=== PATIENT | male | born 1940 | race Caucasian/White ===

== ENCOUNTER 2016-10-01 19:47 | Inpatient (IN) ==
[2016-10-01] MEDS ORDERED: *HR* OxyCODONE/APAP 5/325 TABLET PO ONE (20:10)
--- NOTE | 2016-10-01 21:01 | Emergency Department Note ---
Disposition Clinical Impression: Popliteal artery aneurysm, Popliteal artery embolus Deep vein thrombosis of lower extremity Qualifiers: Affected thrombotic vein of extremity: unspecified vein of extremity Chronicity : acute Laterality: right Qualified Code(s): I82.401 - Acute embolism and thrombosis of unspecified deep veins of right lower extremity Clinical Impression: (Ruled Out): Popliteal artery embolism, right Disposition: Admitted As Inpatient Condition: Fair Referrals: Edith Dunaway DO [Primary Care Provider] - Forms: ED Satisfaction Letter Extremity Problem HPI - General Chief complaint: ED Extremity Problem,Nontraumatic Stated complaint: rt knee pain hospice patient Time Seen by Provider: 10/01/16 19:52 Source: patient, family Mode of arrival: private vehicle Limitations: physical limitation Nursing Notes Reviewed: Yes Vital Signs Reviewed: Yes - History of Present Illness HPI Narrative: 75-year-old male currently on hospice care for CHF who presents to the ER with a chief complaint of right lower extremity pain around his knee. Reports it started around 2-3 days ago. States that during that time he has been unable to ambulate on his right leg. He denies any history of trauma. No history of DVT or PE. Reports the pain worsened so he came in today. Denies a prior injury to his extremity. Denies chest pain. Reports shortness of breath which is chronic. No nausea vomiting diarrhea. Does take Plavix for prior history of cardiac stents. No other complaints. Pt Subjective Complaint: extremity pain, extremity swelling Onset (ago): day(s) Consistency: constant Injury Location: right, lower extremity Pain Scale: 8 Quality: aching Radiation: none Improves with: nothing Worsens with: range of motion, weight bearing Associated symptoms: Reports: shortness of breath, change in appearance, swelling. Denies: chest pain, abdominal pain, fever - Related Data Home Medications Medication Instructions Recorded Confirmed Bumetanide [Bumex] 1 mg PO BID 10/01/16 10/01/16 Clopidogrel [Plavix] 75 mg PO DAILY 10/01/16 10/01/16 Lactobacillus Acidophilus 1 each PO BID 10/01/16 10/01/16 [Acidophilus] Levofloxacin [Levaquin] 250 mg PO DAILY 10/01/16 10/01/16 Levothyroxine [Synthroid] 50 mcg PO 0630 10/01/16 10/01/16 Oxygen 2 l NS AD 10/01/16 10/01/16 Potassium Chloride [Klor-Con 10] 10 meq PO BID 10/01/16 10/01/16 Spironolactone [Aldactone] 25 mg PO DAILY 10/01/16 10/01/16 Allergies Allergy/AdvReac Type Severity Reaction Status Date / Time No Known Allergies Allergy Verified 10/01/16 19:58 All systems ED: reviewed and negative except as stated. Constitutional: Denies: fever Cardiovascular: Denies: chest pain Respiratory: Reports: dyspnea. Denies: cough Gastrointestinal: Denies: abdominal pain, nausea, vomiting, diarrhea Musculoskeletal: Reports: joint swelling (R knee) Past Medical History - Past Medical History Attestation: Yes The following information was validated with the patient. Source: patient Medical history: Reports: CHF Surgical history: Reports: non-contributory Psychiatric history: Reports: no psych history - Social History Smoking Status: Never smoker Smokeless Tobacco Status: No Alcohol use: Reports: none Drug use: Reports: none Physical Exam - General Limitations: no limitations General appearance: alert, in no apparent distress, cachectic - Head Head exam: atraumatic, normocephalic, normal inspection - Eye Eye exam: Present: normal appearance, EOMI - ENT ENT exam: normal exam - Neck Neck exam: Present: normal inspection, full ROM - Chest Chest inspection: Present: normal inspection, symmetric chest wall rise - Respiratory Respiratory exam: Present: normal lung sounds bilaterally - Cardiovascular Cardiovascular exam: Present: regular rate, normal rhythm, normal heart sounds - Abdominal Exam Abdominal exam: Present: soft, Non-Tender. Absent: tenderness - Extremities Exam Extremities exam: Present: normal inspection, full ROM - Expanded Upper Extremity Exam Shoulder exam: Present: normal inspection, full ROM Arm exam: Present: normal inspection, full ROM Elbow exam: Present: normal inspection, full ROM Forearm/Wrist exam: Present: normal inspection, full ROM Hand exam: Present: normal inspection, full ROM - Expanded Lower Extremity Exam Hip/Pelvis exam: Present: normal inspection, full ROM Upper leg exam: Present: normal inspection, full ROM Knee exam: Present: tenderness (There is tenderness to palpation along the medial and posterior aspect of the right knee.), swelling (There is swelling overlying the medial aspect of the right knee) Lower leg exam: Present: normal inspection, full ROM, tenderness (Patient has tenderness to palpation along the proximal posterior aspect of the right leg) Ankle exam: Present: normal inspection, full ROM Foot/toe exam: Present: normal inspection, full ROM Neurovascular/Tendon exam: Absent: motor deficit, sensory deficit - Neurological Exam Neurological exam: Present: alert, other (GCS 15. Moves all extremities with the exception of pain with range of motion of the right knee. Nonfocal neurologic exam.) - Psychiatric Psychiatric exam: Present: normal affect, normal mood - Skin Skin exam: Present: warm, dry, intact, normal color Course Course Narrative: Patient seen and examined. Vital signs reviewed. We will get x-rays and DVT study of the right lower extremity. Patient given Percocet here for pain. - Reevaluation(s) Reevaluation #1: Radiology called reporting that they visualized the DVT in the right iliac with extension to the majority of his lower extremity. We will obtain an arterial study of the right lower extremity as well. We had a long shared decision making conversation with the patient and family present discussing his treatment. They request that we continue the workup and would like admission for pain control and to receive IV medications to anticoagulate him. Daughter did also discuss with us about possibly reversing his hospice status. We will obtain further imaging, order basic labs and then reassess for further intervention. - Consultations Consultation #1: I spoke with the on-call vascular surgeon Dr. Cheney. I discussed the patient' s history and exam imaging and labs to date. 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 We will heparinize the patient and he will see them in consultation in the morning. Vital Signs Temperature 97.9 F 10/01/16 19:48 Pulse Rate 0 10/01/16 19:48 Respiratory Rate 16 10/01/16 19:48 Blood Pressure 89/56 10/01/16 19:48 O2 Sat by Pulse Oximetry 0 10/01/16 19:48 Temperature 97.9 F 10/01/16 19:48 Pulse Rate 90 10/01/16 23:51 Respiratory Rate 18 10/01/16 23:51 Blood Pressure 93/59 10/01/16 23:51 O2 Sat by Pulse Oximetry 100 10/01/16 23:51 Oxygen Delivery Oxygen Delivery Nasal Cannula Extremity Problem, Nontraumati - Lab Data Lab results reviewed: Yes I reviewed the patient's lab results. Result diagrams: 10/01/16 22:00 10/01/16 22:00 Lab Results 10/01/16 10/01/16 10/01/16 Range/Units 22:00 22:00 22:00 WBC 18.8 H (4.3-11.1) K/mcL RBC 3.32 L (4.19-5.50) M/mcL Hgb 9.4 L (12.9-16.9) g/dL Hct 29.0 L (37.5-50.1) % MCV 87.3 (83.0-100.0) fL MCH 28.3 (28.0-33.3) pg MCHC 32.4 (31.6-35.5) g/dL RDW 16.9 H (11.5-14.5) % Plt Count 100 L (140-400) K/mcL MPV 12.0 (9.4-12.4) fL Immature Gran % 1.9 (0-4) % Seg Neutrophils % 73.7 % Lymphocytes % 18.0 % Monocytes % 6.2 % Eosinophils % 0.0 % Basophils % 0.2 % Neutrophils # 13.9 H (1.6-8.9) K/mcL Lymphocytes # 3.4 (0.6-4.6) K/mcL Monocytes # 1.2 (0.0-1.3) K/mcL Eosinophils # 0.0 (0.0-0.6) K/mcL Basophils # 0.0 (0.0-0.2) K/mcL Nucleated RBCs/100 WBC 0.1 H (0) /100 WBC PT 14.5 H (9.4-12.1) Seconds INR 1.3 APTT 23.2 L (26.0-36.0) Seconds Sodium 135 L (136-145) mEq/L Potassium 5.9 H (3.5-4.5) mEq/L Chloride 97 L (98-109) mEq/L Carbon Dioxide 26 (19-29) mEq/L BUN 58 H (8-26) mg/dL Creatinine 1.20 (0.72-1.25) mg/dL Est GFR ( Amer) > 60 (> 60) Est GFR (Non-Af Amer) 59 L (> 60) BUN/Creatinine Ratio 48 H (6-26) Glucose 144 H (70-99) mg/dL Calculated Osmolality 299 (280-300) Calcium 8.4 L (8.6-10.8) mg/dL Troponin I (0-0.03) ng/mL B-Natriuretic Peptide (0-100) pg/mL 10/01/16 10/01/16 Range/Units 22:00 22:00 WBC (4.3-11.1) K/mcL RBC (4.19-5.50) M/mcL Hgb (12.9-16.9) g/dL Hct (37.5-50.1) % MCV (83.0-100.0) fL MCH (28.0-33.3) pg MCHC (31.6-35.5) g/dL RDW (11.5-14.5) % Plt Count (140-400) K/mcL MPV (9.4-12.4) fL Immature Gran % (0-4) % Seg Neutrophils % % Lymphocytes % % Monocytes % % Eosinophils % % Basophils % % Neutrophils # (1.6-8.9) K/mcL Lymphocytes # (0.6-4.6) K/mcL Monocytes # (0.0-1.3) K/mcL Eosinophils # (0.0-0.6) K/mcL Basophils # (0.0-0.2) K/mcL Nucleated RBCs/100 WBC (0) /100 WBC PT (9.4-12.1) Seconds INR APTT (26.0-36.0) Seconds Sodium (136-145) mEq/L Potassium (3.5-4.5) mEq/L Chloride (98-109) mEq/L Carbon Dioxide (19-29) mEq/L BUN (8-26) mg/dL Creatinine (0.72-1.25) mg/dL Est GFR ( Amer) (> 60) Est GFR (Non-Af Amer) (> 60) BUN/Creatinine Ratio (6-26) Glucose (70-99) mg/dL Calculated Osmolality (280-300) Calcium (8.6-10.8) mg/dL Troponin I 0.02 (0-0.03) ng/mL B-Natriuretic Peptide 562 H (0-100) pg/mL - Radiology Data Radiology results reviewed: Yes I reviewed the patient's radiology results. Knee X-Ray 10/01/16 20:08 IMPRESSION: Soft tissue mass in the popliteal fossa may represent a large Tafoya's cyst or popliteal artery aneurysm. Follow-up ultrasound examination would be helpful in further evaluation. D/ / Azar Perez MD / Azar Perez MD Interpreting Provider: Azar Perez MD Chest X-Ray 10/01/16 21:23 IMPRESSION: Moderate bilateral pleural effusions, greater on the right, with adjacent airspace disease. Parapneumonic effusions and pulmonary edema are both considered. Possible permeative lytic lesions within the proximal left humerus. Dedicated left humerus radiograph is recommended. D/ / Bernardino Shelton MD / Bernardino Shelton MD Interpreting Provider: Bernardino Shelton MD Chest CTA 10/01/16 22:29 IMPRESSION: 1. No definite scan evidence for pulmonary embolus. 2. Coronary artery disease. 3. Bilateral pleural effusions and bilateral lower lobe atelectasis. Superimposed pneumonia cannot be excluded. D/ / Marlon Baptiste MD / Marlon Baptiste MD Interpreting Provider: Marlon Baptiste MD - EKG Data EKG attestation: Yes I reviewed and interpreted this EKG. EKG results narrative: EKG demonstrates sinus tachycardia with first-degree AV block with a left bundle branch block at a rate of 119. Left axis deviation. Prolonged IA interval of 239. Prolonged QRS duration of 144. QTc [address]-T wave changes in the lateral leads likely secondary to bundle branch block. No overt ST elevations or depressions. No previous EKG for comparison. Attestation Statement - Attestation Attestation: I personally interviewed and examined this patient and my medical decision- making was reviewed with the Resident Physician. I agree with the documented findings, disposition and treatment plan as described except to the extent set forth below. Patient is a 75-year-old white male with history of end-stage CHF on hospice, who presents to the emergency department today with family with a 4 day history of gradually worsening right posterior knee pain and swelling. Patient denies any history of falls or trauma. Patient's having difficulty with weightbearing in ambulating due to the severity of the pain and swelling he has developed. She has no prior history of DVT or PE. He is not complaining of any worsening shortness of breath lower extremity edema no chest pain pressure or heaviness. I agree with the patient's physical exam findings as documented. Initial workup involved plain film x-ray of the right knee as well as venous Dopplers of the right lower extremity. Plain films were negative for any bony injury, concerning for possible popliteal artery aneurysm versus mass. Recommended to have venous Doppler ultrasound imaging. Dopplers were completed which showed extensive clot burden throughout the entire right lower extremity from the iliacs distal in both superficial and deep veins. Findings were again concerning for popliteal artery aneurysm so ultrasound proceeded with an arterial study for further evaluation. Patient has palpable pulses in the posterior tibial and dorsalis pedis pulses on the affected extremity. Arterial studies did show a popliteal artery aneurysm with significant clot burden but patient with continuous flow through this area. At this point we added further lab evaluation and anticoagulated patient on heparin. We discussed case with Dr. Cheney, who agreed to consult on the patient. He agrees with heparin and will see the patient in consultation. Patient was sent for CTA of the chest which was negative for PE. Results were discussed with the family and family and patient both would like to entertain more aggressive therapy and were amenable to changing CODE STATUS for hospitalization. Case was discussed with the hospitalist who accepted patient for admission for further evaluation and treatment.
[2016-10-01 22:12] LABS: Basophils % 0.2 %; Hemoglobin 9.4 g/dL (12.9-16.9); Immature Granulocytes % 1.9 % (0-4); Lymphocytes # 3.4 K/mcL (0.6-4.6); Mean Corpuscular HGB Conc 32.4 g/dL (31.6-35.5); Mean Corpuscular Hemoglobin 28.3 pg (28.0-33.3); Mean Corpuscular Volume 87.3 fL (83.0-100.0); Monocytes # 1.2 K/mcL (0.0-1.3); Monocytes % 6.2 %; Neutrophils # 13.9 K/mcL (1.6-8.9); Nucleated Red Blood Cells 0.1 /100 WBC (0); Platelet Count 100 K/mcL (140-400); Red Blood Count 3.32 M/mcL (4.19-5.50); Red Cell Distribution Width 16.9 % (11.5-14.5); Segmented Neutrophils % 73.7 %
[2016-10-01 22:21] LABS: INR 1.3; Prothrombin Time 14.5 Seconds (9.4-12.1)
[2016-10-01 22:24] LABS: Activated Partial Thrombo Time 23.2 Seconds (26.0-36.0); BUN/Creatinine Ratio 48 (6-26); Blood Urea Nitrogen 58 mg/dL (8-26); Calcium 8.4 mg/dL (8.6-10.8); Carbon Dioxide 26 mEq/L (19-29); Chloride 97 mEq/L (98-109); Glucose 144 mg/dL (70-99); Osmolality,Calculated 299 (280-300); Potassium 5.9 mEq/L (3.5-4.5); Sodium 135 mEq/L (136-145); eGFR For African Americans > 60 (> 60); eGFR For Non-African Americans 59 (> 60)
[2016-10-01] MEDS ORDERED: *HR* Heparin 5,000 UNIT/ML VIAL IVP ONE (22:26)
[2016-10-01] MEDS ORDERED: *HR* Heparin 5,000 UNIT/ML VIAL IVP PRN ×2 (22:26)
[2016-10-01] MEDS ORDERED: Heparin 25,000 UNIT/500 ML D5W 25,000 UNIT/500 ML MLS IVC SCH (22:30)
[2016-10-01] MEDS ORDERED: 0.9 % Sodium Chloride 500 ML IVC ONE (22:30)
[2016-10-02] MEDS ORDERED: Naloxone 0.4 MG/ML INJ IVP PRN (02:24)
[2016-10-02] MEDS ORDERED: *HR* Dextrose 50 % in Water (Syg) 50 ML SYRINGE IVP ONE (02:27)
[2016-10-02] MEDS ORDERED: Insulin Human Regular 10 UNIT in 0.9 % Sodium Chloride 10 ML IV ONE (02:27)
[2016-10-02] MEDS ORDERED: Calcium Chloride 1,000 MG in 0.9 % Sodium Chloride 100 ML IVPB ONE (02:27)
[2016-10-02] MEDS ORDERED: Dextrose Gel 15 GM PO PRN ×2 (02:28)
[2016-10-02] MEDS ORDERED: D5% in Water 1,000 ML IVC PRN (02:28)
[2016-10-02] MEDS ORDERED: *HR* Dextrose 50 % in Water (Syg) 50 ML SYRINGE IVP PRN (02:28)
--- NOTE | 2016-10-02 02:39 | Internal Med History&Physical ---
Date of Encounter: 10/02/16 Time of Encounter: 02:31 Assessment and Plan (1) Deep vein thrombosis of lower extremity Current visit: Yes Status: Acute heparin gtt as above. vascular onboard - awaiting further recs. Consider conservative given medical co-morbidities Qualifiers: Affected thrombotic vein of extremity: unspecified vein of extremity Chronicity: acute Laterality: right Qualified Code(s): I82.401 - Acute embolism and thrombosis of unspecified deep veins of right lower extremity (2) Popliteal artery aneurysm Current visit: Yes Status: Acute heparin gtt as above. vascular onboard - awaiting further recs. Consider conservative given medical co-morbidities (3) Popliteal artery embolus Current visit: Yes Status: Acute heparin gtt as above. vascular onboard - awaiting further recs. Consider conservative given medical co-morbidities (4) CHF (congestive heart failure), NYHA class IV Current visit: Yes Status: Acute continue bumex, I/Os. Likely return to hospice care after acute event here Qualifiers: Congestive heart failure type: systolic Congestive heart failure chronicity : chronic Qualified Code(s): I50.22 - Chronic systolic (congestive) heart failure (5) Hyperkalemia Current visit: Yes Status: Acute hold aldactone, acute protocol given, recheck K in the morning Internal Medicine - H&P: HPI Chief complaint: Right knee swelling History of present illness: Mr Hyman is a 75 yo male who presents with right knee swelling. Found to have 1) extensive RLE DVT AND 2) Popliteal artery aneurysm with clot but flow. He has been with home hospice since early 2016 for end stage CHF after being seen at [facility] around Feb 2016. He presents today with 4-5 days of worsening RLL swelling of the knee (post-medial aspect) w/o paresthesia or cold foot. ED performed arterial and venous studies confirming both venous and arterial thrombosis. Dr Cheney of vascular was consulted who rec heparin gtt. Clarified code status with and patient - DNRCCA/DNI. They wish to consider options to help improve his quality and would consider subspecialty recommendations. They will likely return to hospice once acute issues addressed US Dopplers in ED showed extensive clot burden throughout the entire right lower extremity from the iliacs distal in both superficial and deep veins Arterial studies did show a popliteal artery aneurysm with significant clot burden but patient with continuous flow through this area CT/CT angio chest IMPRESSION: 1. No definite scan evidence for pulmonary embolus. 2. Coronary artery disease. 3. Bilateral pleural effusions and bilateral lower lobe atelectasis. Superimposed pneumonia cannot be excluded. XR/XR chest 1V portable IMPRESSION: Moderate bilateral pleural effusions, greater on the right, with adjacent airspace disease. Parapneumonic effusions and pulmonary edema are both considered. Possible permeative lytic lesions within the proximal left humerus. Dedicated left humerus radiograph is recommended. XR/XR knee 3V RT IMPRESSION: Soft tissue mass in the popliteal fossa may represent a large Tafoya's cyst or popliteal artery aneurysm. Follow-up ultrasound examination would be helpful in further evaluation. Past Med Surg Social Fam HX - Past Medical History Medical history: CHF, COPD Psychiatric history: no psych history - Past Surgical History Surgical History: non-contributory - Social History Smoking Status: Former smoker Smokeless Tobacco Status: No (Used to chew) Alcohol use: none Drug use: none - Additional Family History Additional family history: HTN Internal Medicine - H&P: Meds Bumetanide [Bumex] 1 mg PO BID 10/01/16 [History] Clopidogrel [Plavix] 75 mg PO DAILY 10/01/16 [History] Lactobacillus Acidophilus [Acidophilus] 1 each PO BID 10/01/16 [History] Levofloxacin [Levaquin] 250 mg PO DAILY 10/01/16 [History] Levothyroxine [Synthroid] 50 mcg PO 0630 10/01/16 [History] Oxygen 2 l NS AD 10/01/16 [History] Potassium Chloride [Klor-Con 10] 10 meq PO BID 10/01/16 [History] Spironolactone [Aldactone] 25 mg PO DAILY 10/01/16 [History] 3 Allergy/AdvReac Type Severity Reaction Status Date / Time No Known Allergies Allergy Verified 10/01/16 19:58 All Systems PM: A 10-system review of systems was performed and is negative for pertinent findings except as documented above in the HPI. Review of systems: ROS 14 point review of systems reviewed as best as possible given presentation. Pertinent positive or negative as per HPI or otherwise reviewed as negative - Constitutional Vitals: Temp Pulse Resp BP Pulse Ox 97.7 F 86 16 98/60 100 10/02/16 00:48 10/02/16 00:48 10/02/16 00:48 10/02/16 00:48 10/02/16 00:48 Exam: General - AAO x 3 Psych - Appropriate affect/speech. No agitation Eyes - ABDIEL. Eye lids intact. No scleral icterus Heart - Sinus. RRR. S1 and S2 present. No added HS/murmurs appreciated. No elevated JVD appreciated. Lung - Adequate air entry b/l, No crackes/wheezes appreciated GI - Soft, non-tender. No hepatosplenomegaly/ascites. BS+ - No CVA/suprapubic tenderness or palpable bladder distension Skin - Intact. No rash/petechiae/ecchymosis. Warm extremities. Right knee swelling (posterior-medial with some erythema). Right foot warm with intact sensation Internal Med - H&P Results - Labs CBC & Chem 7: 10/01/16 22:00 10/01/16 22:00 - VTE Reasons for not Prescribing Prophylaxis: Not indicated-Anticoagulated or INR therapeutic
[2016-10-02 03:19] LABS: Hematocrit 24.3 % (37.5-50.1); Hemoglobin 7.7 g/dL (12.9-16.9); Immature Platelets 8.8 % (1.1-6.1); Mean Corpuscular HGB Conc 31.7 g/dL (31.6-35.5); Mean Corpuscular Hemoglobin 27.6 pg (28.0-33.3); Mean Corpuscular Volume 87.1 fL (83.0-100.0); Mean Platelet Volume 11.9 fL (9.4-12.4); Red Blood Count 2.79 M/mcL (4.19-5.50); Red Cell Distribution Width 16.7 % (11.5-14.5)
[2016-10-02 03:33] LABS: Alanine Aminotransferase 14 Units/L (0-55); Albumin 2.3 g/dL (3.5-5.0); Albumin/Globulin Ratio 1.2 (1.1-2.2); Alkaline Phosphatase 55 Units/L (38-126); Aspartate Amino Transferase 24 Units/L (5-34); BUN/Creatinine Ratio 50 (6-26); Bilirubin,Total 2.1 mg/dL (0.2-1.2); Blood Urea Nitrogen 54 mg/dL (8-26); Calcium 7.8 mg/dL (8.6-10.8); Carbon Dioxide 29 mEq/L (19-29); Chloride 97 mEq/L (98-109); Glucose 130 mg/dL (70-99); Magnesium 2.2 mg/dL (1.6-2.6); Osmolality,Calculated 295 (280-300); Potassium 4.3 mEq/L (3.5-4.5); Sodium 134 mEq/L (136-145); Total Protein 4.3 g/dL (6.0-8.3); eGFR For African Americans > 60 (> 60); eGFR For Non-African Americans > 60 (> 60)
[2016-10-02] MEDS: *HR* OxyCODONE/APAP 5/325 TABLET PO PRN ×2 (03:34→15:31)
[2016-10-02] MEDS ORDERED: Spironolactone 25 MG TABLET PO SCH (09:00)
[2016-10-02] MEDS: Lactobacillus 1 EACH CAP.SPRINK PO SCH ×2 (09:58→21:25)
[2016-10-02] MEDS: Bumetanide 1 MG TABLET PO SCH ×2 (09:58→21:25)
--- NOTE | 2016-10-02 10:08 | Arterial Study Report ---
LE Arterial Duplex Patient Name:Prudencio Hyman Order Number:[id number] Procedure Date:10/01/2016 Date:1940ge:75 yrs Gender:Male Rt.BP:89 / 56 mmHgHeart Rate: Location:[facility] ED Room #: ER30 Quantitative Software Engineer:Radha Lake RDCS Referring MD:Morris Frost DO chair mechanic:Edith Dunaway DO Reading MD:Sanket Martin MD Primary Indications:Pain Impressions: Right popliteal aneurysm. There is extensive thrombosis however flow is maintained. There is greater than 75% stenosis in this area. Surgical evaluation is recommended Recommendations: Test completed on 10/01/2016 at 9:43:00 pm. Critical findings reported to Dr Frost in person at 9:45:00 pm on 10/01/2016 by Radha Lake RDCS. Findings Arterial Duplex Results: Right: The PSV in the right mid external iliac artery is 85 cm/s. The PSV in the right distal external iliac artery is 96 cm/s. The PSV in the right common femoral artery is 86 cm/s. The PSV in the right proximal superficial femoral artery is 66 cm/s. The PSV in the right mid superficial femoral artery is 84 cm/s. The PSV in the right popliteal artery is 391 cm/s. There is a partially thrombosed aneurysm in the right popliteal artery. The PSV in the right distal superficial femoral artery is 99 cm/s. The PSV in the right distal posterior tibial artery is 31 cm/s. Prior Study: No prior study available for comparison. LE Duplex Side Vessel PSV EDV Assessment Right Mid External Iliac 85 Right Distal External Iliac 96 Right Prox Superficial Femoral 66 Right Mid Superficial Femoral 84 Right Popliteal 391 Right Distal Superficial Femoral 99 Right Distal Posterior Tibial 31 Right Distal Peroneal 65 Right Common Femoral 86 NIGHAT Updated by Sanket Martin MD on 10/02/2016 10:03:50 AM electronically signed on 10/02/2016 10:04:23 AM with status of Final
--- NOTE | 2016-10-02 12:26 | Event Note ---
Date of Encounter: 10/02/16 Time of Encounter: 11:45 Patient is admitted early today morning after he was brought in from home due to swelling and pain in his legs. The patient was found to have DVT bilateral lower extremities and a popliteal artery aneurysm with flow. Patient has been admitted and vascular surgery consulted. Today morning, patient continues to report pain in his right calf. He states that he has not had a bowel movement since admission. Clear breath sounds bilaterally. Tenderness to palpation of the right calf. Case discussed with vascular surgery-patient is scheduled for inferior vena caval filter placement today due to a reduction in his hemoglobin count with intravenous heparin. 1. Bilateral lower extremity DVT without PE-appreciate vascular surgery input. Currently on a heparin drip. Patient to receive inferior vena caval filter placement today. We will follow further recommendations. Pain control.
[2016-10-02] MEDS ORDERED: Heparin 1,000 UNITS/500 mL NS 500 ML ONE (12:54)
--- NOTE | 2016-10-02 13:31 | Vascular/Endovasc Consult Note ---
Date of Encounter: 10/02/16 Time of Encounter: 09:00 Assessment and Plan (1) Deep vein thrombosis of lower extremity Current Visit: Yes Status: Acute The patient has an acute right lower extremity DVT. He is currently on a heparin drip. His hemoglobin has decreased since starting the drip. 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 He also has poor cardiopulmonary reserve. An IVC filter is recommended to reduce his risk of pulmonary embolus. The risks, benefits and alternatives were discussed and all questions were answered. He expressed understanding and wishes to proceed. 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 The aneurysm is palpable on clinical exam. The patient has no evidence of a popliteal embolus. He has biphasic signals in his right foot, his foot is warm and his motor and sensory exam is intact. His duplex was reviewed. He was noted to have significant mural thrombus. He has increased velocities within the popliteal artery that are consistent with a 75% stenosis. He is not a candidate for elective open repair. Endovascular repair can be considered in the future. He will need further imaging including a CTA of the aorta with runoff. The patient has received contrast yesterday and will receive additional contrast today during his IVC filter placement. His CTA can be scheduled tomorrow or as an outpatient if he is discharged. He will need to follow-up in vascular clinic next week if discharged. (3) Coronary artery disease Current Visit: Yes Status: Acute The patient reports a history of coronary artery disease. His currently on hospice due his congestive heart history. Qualifiers: Coronary Disease-Associated Artery/Lesion type: [place] artery [place] vs. transplanted heart: [place] heart Associated angina: without angina Qualified Code(s): I25.10 - Atherosclerotic heart disease of [place] coronary artery without angina pectoris - History of Present Illness Consult date: 10/02/16 Requesting physician: Morris Frost Consult reason: Popliteal aneurysm, DVT Chief complaint: Right leg pain and swelling History of present illness: Mr. Hyman is a 75 year old male with multiple medical comorbidities. He is currently on hospice due to his history of congestive heart failure. He reports progressive right lower extremity leg pain and swelling. He was seen in the ER and a venous duplex revealed extensive deep vein thrombosis. A right popliteal artery aneurysm was also identified and noted to have significant thrombus present. The patient was admitted and started on a heparin drip. Vascular surgery was consulted for further evaluation of his aneurysm and DVT. At the time of the exam, the patient reports that his leg feels better. He denies any focal neurologic deficits. He denies chest pain or shortness of breath. Past Med Surg Social Fam HX - Past Medical History Medical history: CHF, COPD Psychiatric history: no psych history - Past Surgical History Surgical History: non-contributory - Social History Smoking Status: Former smoker Smokeless Tobacco Status: No (Used to chew) Alcohol use: none Drug use: none Medications and Allergies Bumetanide [Bumex] 1 mg PO BID 10/01/16 [History] Clopidogrel [Plavix] 75 mg PO DAILY 10/01/16 [History] Lactobacillus Acidophilus [Acidophilus] 1 each PO BID 10/01/16 [History] Levofloxacin [Levaquin] 250 mg PO DAILY 10/01/16 [History] Levothyroxine [Synthroid] 50 mcg PO 0630 10/01/16 [History] Oxygen 2 l NS AD 10/01/16 [History] Potassium Chloride [Klor-Con 10] 10 meq PO BID 10/01/16 [History] Spironolactone [Aldactone] 25 mg PO DAILY 10/01/16 [History] methylPREDNISolone [Medrol] See Taper PO TAPER 10/02/16 [History] 3 Allergy/AdvReac Type Severity Reaction Status Date / Time No Known Allergies Allergy Verified 10/01/16 19:58 All Systems Review: A 10-system review of systems was performed and is negative for pertinent findings except as documented above in the HPI. - Constitutional Constitutional: no chills, no fever(s) - Cardiovascular Cardiovascular: no chest pain at rest, no chest pain with exertion, no dyspnea at rest, no dyspnea on exertion Exam Vital Signs, Last 4 Hours Temp Pulse Resp BP Pulse Ox 10/02/16 11:46 97.9 F 79 15 94/60 100 General: Present: Conversant, No Apparent Distress HEENT: Present: Trachea midline, Pupils equal Neck: Absent: JVD, Lymphadenopathy Cardiac: Present: Reg Rate and Rhythm Lungs: Present: Normal Breath Sounds Neuro: Present: Alert and responsive, No focal deficits noted, Motor nerves grossly intact, Sensory nerves grossly intact Abdomen: Present: Soft, Non-tender Vascular: Present: Normal capillary refill, Edema (Trace right lower extremity edema), Color/Temperature (right foot warm), Other (right pedal signals biphasic by doppler). Absent: Clubbing, Cyanosis Skin: Present: No rashes noted on visualized skin Consult Discharge Plan - Plan Referrals: Edith Dunaway DO [Primary Care Provider] -
[2016-10-02] MEDS ORDERED: 0.9 % Sodium Chloride 1,000 ML ONE (13:34)
--- NOTE | 2016-10-02 13:38 | Pre-Sedation Evaluation ---
Pre-sedation evaluation - Pre-sedation checklist Date of procedure: 10/02/16 Procedure: IVC Filter Recent Vitals: Last Vital Signs Temp 97.9 F 10/02/16 11:46 Pulse 79 10/02/16 11:46 Resp 15 10/02/16 11:46 BP 94/60 10/02/16 11:46 Pulse Ox 100 10/02/16 11:46 H&P (including ROS) documented in medical record: Yes Previous reaction to sedatives/anesthetics: No Dietary Status: No solid food in preceding 4 hrs and no liquid in preceding 2 hrs Airway Assessment: Patient can open mouth completely, TMJ function normal, Neck with adequate range of motion Possible difficult airway: No ASA Classification *see protocol: CLASS IV-Severe systemic disease/constant threat to pt's life Plan of Care: Pt appropriate candidate for procedure/moderate/conscious sedation , Risks/benefits of procedure/sedation discussed w/ patient/family
--- NOTE | 2016-10-02 14:18 | Procedure Note ---
Date of procedure: 10/02/16 Pre-op diagnosis: Bilat LE DVT/Anemia Post-op diagnosis: same Procedure: IVC-o-gram IVC Filter via right jugular approach Anesthesia: local Surgeon: Taco Hooper Condition: stable Disposition: floor
[2016-10-02] MEDS ORDERED: Acetaminophen 325 MG TABLET PO PRN (14:20)
--- NOTE | 2016-10-02 14:36 | Invasive Diagnostic Lab Proc ---
Name: Prudencio Hyman Date of Study: 10/02/2016 Date: 1940 Ht: 170.0 in Medical Record#: [id number] Age: 75 Wt: 45.8 lb Gender: Male BSA: 1.51 Order #: [id number] BMI: 15.85 Physicians Performing MD: Taco Hooper MD, FACS Referring MD: Referring MD: Staff Name Position Time In Chief Of Staff Vero Sepulveda RT (R) Scrub Sudhir Soares RT (R) Monitor Indications DVT, Bilateral Procedures Performed IVC FILTER PLACEMENT Pre-Procedure Checklist Informed consent is complete signed and on chart. H&P is on chart. ID band is on and ID verified with patient. Patient NPO for procedure The procedure was described for the patient and questions were answered. Blood Pressure: 89/48 ECG is on chart. Rhythm: NSR Plan of Care Patient will tolerate the procedure without complications. Adequate level of comfort will be maintained. Hemodynamics will remain stable Patient will recover from procedure without complications. Respiratory function will be maintained. Cardiac rhythm will remain stable. Patient temperature will be maintained. Patient and/or family have verbalized understanding of the procedure. Patient Education Chief Complaint/Reason for Test: IVC filter Developmental Category: Geriatric (65+ years) Learning Barriers: None Education Needs: Procedure Education Method: Verbal Information Taught: IVC filter Educational Evaluation: Able to repeat information Intravenous Access Time IV Size Location DC'd Fluid/Drip Rate Units RN 13:03 20g 1 1/4" Patent On Arrival Lt Arm 0.9NaCl 25 ml/hr Nilesh Hernandez RN 13:03 20g 1 1/4" Patent On Arrival Rt Antecubital Allergies No Known Allergies Vital Signs Time BP Systolic BP Diastolic HR O2 Sats ASA 01:04 PM 94 60 79 100 01:33 PM 01:33 PM 01:48 PM 02:03 PM 01:40 PM 96 52 109 97 01:43 PM 89 48 83 97 01:46 PM 93 52 83 98 01:49 PM 93 56 83 97 01:52 PM 93 57 83 98 01:55 PM 88 53 76 97 01:58 PM 91 60 75 98 02:01 PM 91 59 83 97 02:04 PM 94 64 81 96 02:07 PM 94 54 76 98 02:10 PM 92 57 82 96 02:13 PM 98 53 77 98 02:16 PM 92 49 73 99 02:19 PM 92 53 84 99 02:22 PM 100 60 81 99 02:25 PM 91 57 85 98 Procedure Medications Time Medication Dose Units Method Route 01:49 PM Oxygen 2 L/min nasal cannula 01:52 PM Lidocaine 2% 4 ml Subcutaneous ASA Classification: CLASS II- Mild systemic disease (i.e. well-controlled diabetes, hypertension, asthma, cigarette smoking) Carlos Score Preprocedure Postprocedure Activity 2- Moves 4 extremities sustained head lift Activity 2- Moves 4 extremities sustained head lift Circulation 2- SBP +/= 20 points of pre-anesthetic level Circulation 2- SBP +/= 20 points of pre-anesthetic level Consciousness 2- Awake and alert oriented x 3 Consciousness 2- Awake and alert oriented x 3 O2 Saturation 2- Able to maintain O2 satruation of 92% on room air O2 Saturation 2- Able to maintain O2 satruation of 92% on room air Respiratory 2- Able to deep breathe and cough well Respiratory 2- Able to deep breathe and cough well Total Score 10 Total Score 10 Contrast: Isovue 300- 150ml Contrast Amount: 10 ml Fluoro Dose: 96 mGy Procedure Log Time Note Entered By 01:30 PM Pt arrived to minilab operator 1 at 13:30 01:30 PM Physician arrived 13:30 01:30 PM Case delayed: No 01:30 PM Meet and greet completed 01:30 PM Sign in performed according to hospital policy. 01:30 PM Procedure start 13:30 01:30 PM ASA Class CLASS II- Mild systemic disease (i.e. well-controlled diabetes, hypertension, asthma, cigarette smoking) 01:32 PM Nilesh Hernandez RN Position: Chief Of Staff Time in: 13:32 :33 PM Vero Sepulveda RT (R) Position: Scrub Time in: 13:32 01:33 PM Sudhir Soares RT (R) Position: Monitor Time in: 13:33 :33 PM Time: 13:33 Is patient comfortable and pain free?: Yes :33 PM Time: 13:33LOC: 5 = Fully awake and oriented or at pre-proc level 01:39 PM Hair removed from procedure site in procedure lab using clippers. Right Jugular prepped with Chloraprep by Vero Sepulveda RT (R), safety strap applied then patient was draped. Skin intact. [email or web address] 01:39 PM Patient Charges- Cook Celect IVC Filter ,Tray Pack and Pulse Oximetry. [email or web address] 01:48 PM Time: 13:33 Is patient comfortable and pain free?: Yes [email or web address] 01:48 PM Time: 13:33LOC: 5 = Fully awake and oriented or at pre-proc level [email or web address] 01:49 PM 13:49 Oxygen at 2 L/min per nasal cannula by Nilesh Hernandez RN [email or web address] 01:51 PM Time out perfomed [email or web address] 01:53 PM 13:52 4 ml Lidocaine 2% to right jugular Subcutaneous Given By Taco Hooper MD, FACS [email or web address] 01:55 PM 0.035 145cm J-wire wire utilized to assist with catheter placement [email or web address] 01:59 PM Access obtained in the rt jugular by percutaneous puncture. Wire advanced. [email or web address] 02:00 PM Access obtained in the by percutaneous puncture. 5 Fr. 10 cm Terumo [place] sheath placed in right jugular artery [email or web address] 02:00 PM J-wire advanced [email or web address] 02:01 PM 5Fr [place] catheter inserted over the wire [email or web address] 02:02 PM j-wire removed [email or web address] 02:02 PM Inferiorvenacavagram performed. [email or web address] 02:03 PM Time: 13:48 Is patient comfortable and pain free?: Yes [email or web address] 02:03 PM Time: 13:48LOC: 5 = Fully awake and oriented or at pre-proc level [email or web address] 02:04 PM Catheter removed [email or web address] 02:08 PM Access obtain and IVC Filter sheath inserted Rt Jugular vein. [email or web address] 02:09 PM IVC Filter inserted into the inferior vena cava [email or web address] 02:11 PM IVC Filter deployed into the inferior vena cava [email or web address] 02:12 PM Inferiorvenacavagram performed. [email or web address] 02:13 PM Arterial sheath pulled using manual compression by Veor Sepulveda RT [email or web address] 02:13 PM Procedure completed at 14:13 [email or web address] 02:13 PM Sign Out completed: Radiation Dose 95.72 mGy Fluoro Time: 2.2 minutes. Isovue 300- 150ml contrast 10 ml given by Taco Hooper MD, FACS. Complications: None. Confirmed administered medications:Yes [email or web address] 02:14 PM Isovue 300- 150ml,1 bottle(s) used. bw 02:14 PM Post Blood Pressure: 98/58 [email or web address] 02:14 PM Post EKG: NSR bw 02:14 PM Information taught: IVC filter bw 02:14 PM Family placed in consult room. [email or web address] 02:15 PM Education needs: Procedure, Plan of Care, and Disease Process bw 02:15 PM Learning barriers: None bw 02:15 PM Education methods: Verbal bw 02:15 PM Education evaluation: Able to repeat information 02:15 PM Delay to floor: No bw 02:15 PM Complications: None bw 02:15 PM Fluoro Time: 2.2 minutes bw 02:15 PM Isovue 300- 150ml contrast 10 ml given by Taco Hooper MD, FACS bw 02:15 PM Radiation Dose 95.72 mGy bw 02:18 PM Time: 14:03LOC: 5 = Fully awake and oriented or at pre-proc level bw 02:18 PM Time: 14:03 Is patient comfortable and pain free?: Yes 02:20 PM Report given to eagle MALONE. Pt taken to [facility], Room # 21 14:19 02:25 PM Briana machuca held for 12 mins, Vero Sepulveda RT 02:26 PM Site status No bleeding/hematoma - Rt Jugular as reported by Vero Sepulveda RT (R) at 14:25 [email or web address] 02:26 PM Opsite applied bw 01:30 PM PVIStat 01:40 PM Vitals capture started with the following parameters, Patient=Adult, Interval=3 min, Initial Mwzfzegh=245 mmHg, Deflation Rate=5 mmHg, Cuff placed on Left Arm 01:40 PM Recorded ECG: HE=928 Condition=Condition 1 01:40 PM BG=677 bpm, NIBP=96/52 mmhg, SpO2=97.0 %, Comment=st 01:43 PM HR=83 bpm, NIBP=89/48 mmhg, SpO2=97.0 %, Resp=19 B/min 01:46 PM HR=83 bpm, NIBP=93/52 mmhg, SpO2=98.0 %, Resp=19 B/min 01:49 PM HR=83 bpm, NIBP=93/56 mmhg, SpO2=97.0 %, Resp=28 B/min 01:52 PM HR=83 bpm, NIBP=93/57 mmhg, SpO2=98.0 %, Resp=22 B/min 01:55 PM HR=76 bpm, NIBP=88/53 mmhg, SpO2=97.0 %, Resp=18 B/min 01:58 PM HR=75 bpm, NIBP=91/60 mmhg, SpO2=98.0 %, Resp=21 B/min 02:01 PM HR=83 bpm, NIBP=91/59 mmhg, SpO2=97.0 %, Resp=17 B/min 02:04 PM HR=81 bpm, NIBP=94/64 mmhg, SpO2=96.0 %, Resp=17 B/min 02:07 PM HR=76 bpm, NIBP=94/54 mmhg, SpO2=98.0 %, Resp=18 B/min 02:10 PM HR=82 bpm, NIBP=92/57 mmhg, SpO2=96.0 %, Resp=16 B/min 02:13 PM HR=77 bpm, NIBP=98/53 mmhg, SpO2=98.0 %, Resp=24 B/min 02:16 PM HR=73 bpm, NIBP=92/49 mmhg, SpO2=99.0 %, Resp=16 B/min 02:19 PM HR=84 bpm, NIBP=92/53 mmhg, SpO2=99.0 %, Resp=24 B/min 02:22 PM HR=81 bpm, IDHS=677/60 mmhg, SpO2=99.0 %, Resp=23 B/min 02:25 PM HR=85 bpm, NIBP=91/57 mmhg, SpO2=98.0 %, Resp=18 B/min 02:26 PM Vitals capture stopped. 02:31 PM Patient out of room 14:31 [email or web address] Post Procedure Information Blood Pressure: 98/58 mmHg Rhythm: NSR Post procedure instructions given Site Checks Time Location Status Staff Sheath In? Note 2:25:00 PM Rt Jugular No bleeding/ No Hematoma Vero Sepulveda RT (R) Pulses Time Site Pre Procedure Post Procedure Note 10/02/2016 1:04:00 PM Bilateral radial 2+ 10/02/2016 1:04:00 PM Bilateral DP 1+ Updated by Sudhir LATIF (R) on 10/02/2016 2:32:04 PM Sudhir Soares, RT electronically signed on 10/02/2016 2:32:25 PM with status of Final
--- NOTE | 2016-10-02 15:34 | Electrocardiograph Report ---
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
[2016-10-02] MEDS ORDERED: Amiodarone Premix 150 MG/100 ML BAG IVPB ONE (23:04)
--- NOTE | 2016-10-02 23:06 | Event Note ---
Date of Encounter: 10/02/16 Time of Encounter: 23:05 Seen patient at bedside EKG rate 139, AFib, rvr Temp taken bedside 103 Suspect sepsis Had IVC F placement today A/P - Cefepime, vanco - 2 set blood cx, urine cx, CXR - amiodrone gtt due to soft BP - IVF
[2016-10-02] MEDS: Cefepime HCl 2,000 MG in D5% in Water (Mini-Bag+) 100 ML IVPB SCH (23:22)
[2016-10-02] MEDS ORDERED: Vancomycin 750 MG in D5% in Water 250 ML IVPB SCH (23:45)
[2016-10-03] MEDS ORDERED: Amiodarone Premix 360 MG/200 ML BAG IVC ONE
[2016-10-03] MEDS: 0.9 % Sodium Chloride 1,000 ML IVC SCH ×3 (00:16→22:36)
[2016-10-03] MEDS: Vancomycin 750 MG in D5% in Water 250 ML IVPB SCH ×2 (00:54→23:22)
[2016-10-03 01:46] LABS: Bilirubin,Urine Negative (Negative); Blood,Urine Negative (Negative); Clarity,Urine Clear (Clear); Color,Urine Yellow (Yellow); Glucose,Urine (UA) Normal (Normal); Ketones,Urine Negative (Negative); Leukocyte Esterase,Urine Negative (Negative); Nitrite,Urine Negative (Negative); Protein,Urine Negative (Neg-Trace); Specific Gravity,Urine 1.017 (1.010-1.025); Urobilinogen,Urine Normal (Normal)
[2016-10-03] MEDS: Amiodarone Premix 360 MG/200 ML BAG IVC SCH ×2 (05:59→16:18)
[2016-10-03 07:06] LABS: Hematocrit 21.5 % (37.5-50.1); Mean Platelet Volume 12.3 fL (9.4-12.4)
[2016-10-03 07:07] LABS: Hemoglobin 6.8 g/dL (12.9-16.9); Immature Platelets 9.1 % (1.1-6.1); Mean Corpuscular HGB Conc 31.6 g/dL (31.6-35.5); Mean Corpuscular Hemoglobin 27.5 pg (28.0-33.3); Monocytes # 0.6 K/mcL (0.0-1.3); Platelet Count 79 K/mcL (140-400); Red Blood Count 2.47 M/mcL (4.19-5.50)
[2016-10-03 08:10] LABS: Lymphocytes # 2.3 K/mcL (0.6-4.6); Neutrophils # 7.6 K/mcL (1.6-8.9); Platelet Estimate Decreased (Normal)
--- NOTE | 2016-10-03 08:57 | Internal Med Progress Note ---
Date of Encounter: 10/03/16 Time of Encounter: 08:57 - Assessment and plan (1) Atrial fibrillation Current Visit: Yes Status: Acute Assessment and plan: Noted to have new onset of atrial fibrillation with rapid ventricular rate overnight. Has been started on IV amiodarone drip due to borderline low blood pressure. Continue the same, plan to switch to oral amiodarone tomorrow. Not a candidate for anticoagulation due to persistent anemia. Qualifiers: Atrial fibrillation type: paroxysmal Qualified Code(s): I48.0 - Paroxysmal atrial fibrillation (2) Sepsis Current Visit: Yes Status: Acute Assessment and plan: Patient was noted to have an episode of fever spike, tachycardia with atrial fibrillation last night. This is likely related to bilateral acute lower extremity DVT and IVC filter placement. Sepsis to be considered. Urinalysis is not suggestive of infection. Chest x-ray and CT angiogram of chest shows bilateral pleural effusions and underlying pneumonia cannot be excluded. Follow -up blood cultures and continue broad-spectrum IV antibiotics-cefepime and vancomycin for now. Supportive care. Qualifiers: Sepsis type: sepsis due to unspecified organism Qualified Code(s): A41.9 - Sepsis, unspecified organism (3) Deep vein thrombosis of lower extremity Current Visit: Yes Status: Acute Assessment and plan: Bilateral venous Doppler showed extensive DVTs in both legs from iliac up to posterior tibial and peroneal veins. Patient has been previously started on anticoagulation with IV heparin drip, however was noted to have an acute drop in hemoglobin. Vascular surgery was consulted and he underwent placement of IVC filter yesterday. No further anticoagulation due to sustained anemia. Supportive care and pain control. Plan to be discharged back to hospice care when stable. 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 Noted to have significant mural thrombus , with 70% stenosis. No acute intervention recommended, possible endovascular intervention in the future after further vascular studies. 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 Continue supportive care and supplemental oxygen as needed. Qualifiers: Congestive heart failure type: systolic Congestive heart failure chronicity : chronic Qualified Code(s): I50.22 - Chronic systolic (congestive) heart failure (8) Coronary artery disease Current Visit: Yes Status: Chronic Qualifiers: Coronary Disease-Associated Artery/Lesion type: [place] artery [place] vs. transplanted heart: [place] heart Associated angina: without angina Qualified Code(s): I25.10 - Atherosclerotic heart disease of [place] coronary artery without angina pectoris (9) Anemia Current Visit: Yes Status: Acute Assessment and plan: Noted to have worsening anemia, hemoglobin 6.8 today. Has received anticoagulation with IV heparin drip briefly after admission. This has been since held. We will transfuse 1 unit PRBC and continue to monitor. Qualifiers: Anemia type: unspecified type Qualified Code(s): D64.9 - Anemia, unspecified - Subjective Interval history: Reports feeling well; has some right knee pain. No chest pain, shortness of breath; on Amiodarone drip; underwent IVC filter placement yesterday; - Constitutional Vitals: Temp Pulse Resp BP Pulse Ox 97.6 F 75 16 90/51 100 10/03/16 07:19 10/03/16 07:19 10/03/16 07:19 10/03/16 07:19 10/03/16 07:19 General appearance: Present: cachectic, A&O X 3, answers questions appropriately - Respiratory Respiratory exam: Present: CTAB. Absent: accessory muscle use, rales, rhonchi, wheezes - Cardiovascular Cardiovascular exam: Present: irregular rhythm, +S1, +S2. Absent: diastolic murmur, gallop, rubs, systolic murmur - GI/Abdominal GI/Abdominal exam: Present: normal bowel sounds, soft, no peritoneal signs. Absent: distended, tenderness - Extremities Exam Extremities exam: Present: pedal edema, warm, radial pulses palpable and symmetrical. Absent: calf tenderness, cyanotic Additional comments: right popliteal fossa- full and tender Internal Medicine: Result - Labs CBC & Chem 7: 10/03/16 05:51 10/02/16 03:00 Labs: Short CBC 10/03/16 Range/Units 05:51 WBC 10.6 (4.3-11.1) K/mcL Hgb 6.8 L (12.9-16.9) g/dL Hct 21.5 L (37.5-50.1) % Plt Count 79 L (140-400) K/mcL Neutrophils # 7.6 (1.6-8.9) K/mcL Urine 10/03/16 Range/Units 01:20 Urine Color Yellow (Yellow) Urine Clarity Clear (Clear) Urine pH 5.0 (5.0-8.0) pH Units Ur Specific [place] 1.017 (1.010-1.025) Urine Protein Negative (Neg-Trace) mg/dL Urine Glucose (UA) Normal (Normal) mg/dL - ABG Interpretation ABG results: PT/INR, D-dimer PT 14.5 Seconds (9.4-12.1) H 10/01/16 22:00 - Impressions Impressions Chest X-Ray 10/02/16 23:04 IMPRESSION: Right greater than left pleural effusions with adjacent airspace disease, unchanged. D/ / Gilberto Montilla MD / Gilberto Montilla MD Interpreting Provider: Gilberto Montilla MD - VTE Reasons for not Prescribing Prophylaxis: Not indicated-Anticoagulated or INR therapeutic Consult Discharge Plan - Plan Referrals: Edith Dunaway DO [Primary Care Provider] -
[2016-10-03] MEDS: Lactobacillus 1 EACH CAP.SPRINK PO SCH ×2 (08:58→20:29)
[2016-10-03] MEDS: Bumetanide 1 MG TABLET PO SCH ×2 (08:58→20:29)
[2016-10-03] MEDS: Cefepime HCl 2,000 MG in D5% in Water (Mini-Bag+) 100 ML IVPB SCH ×2 (12:00→22:36)
[2016-10-04 05:22] LABS: Hematocrit 24.8 % (37.5-50.1); Hemoglobin 8.4 g/dL (12.9-16.9); Immature Platelets 8.8 % (1.1-6.1); Mean Corpuscular HGB Conc 33.9 g/dL (31.6-35.5); Mean Corpuscular Hemoglobin 28.7 pg (28.0-33.3); Mean Corpuscular Volume 84.6 fL (83.0-100.0); Platelet Count 75 K/mcL (140-400); Red Blood Count 2.93 M/mcL (4.19-5.50); Red Cell Distribution Width 16.9 % (11.5-14.5)
[2016-10-04 05:36] LABS: BUN/Creatinine Ratio 52 (6-26); Calcium 7.3 mg/dL (8.6-10.8); Carbon Dioxide 23 mEq/L (19-29); Chloride 103 mEq/L (98-109); Glucose 102 mg/dL (70-99); Osmolality,Calculated 294 (280-300); Sodium 137 mEq/L (136-145); eGFR For African Americans > 60 (> 60); eGFR For Non-African Americans > 60 (> 60)
[2016-10-04 05:38] LABS: Blood Urea Nitrogen 41 mg/dL (8-26); Potassium 2.9 mEq/L (3.5-4.5)
[2016-10-04 06:39] LABS: Lymphocytes # 1.9 K/mcL (0.6-4.6); Monocytes # 0.6 K/mcL (0.0-1.3); Neutrophils # 8.1 K/mcL (1.6-8.9)
[2016-10-04 06:40] LABS: Hypochromasia Present (Not Present); Platelet Estimate Decreased (Normal)
[2016-10-04] MEDS ORDERED: Aminoglycoside Consult 1 EACH MC ONE (08:29)
[2016-10-04] MEDS ORDERED: Potassium Chloride Elixir 20 MEQ/15 ML UDC PO SCH (08:30)
[2016-10-04] MEDS: Bumetanide 1 MG TABLET PO SCH ×2 (09:19→21:52)
[2016-10-04] MEDS: Lactobacillus 1 EACH CAP.SPRINK PO SCH ×2 (09:19→21:52)
[2016-10-04] MEDS: *HR* Amiodarone 200 MG TABLET PO SCH (09:19)
[2016-10-04] MEDS: 0.9 % Sodium Chloride 1,000 ML IVC SCH ×2 (09:19→21:50)
--- NOTE | 2016-10-04 10:18 | Internal Med Progress Note ---
Date of Encounter: 10/04/16 Time of Encounter: 10:15 - Assessment and plan (1) Urinary retention Current Visit: Yes Status: Acute Assessment and plan: Likely due to benign prostatic hyperplasia. Bladder scan revealed 210 mL urine , Nunez catheterization attempted by nursing staff twice. We will consult urology for Nunez catheter placement. (2) Atrial fibrillation Current Visit: Yes Status: Acute Assessment and plan: Noted to have new onset of atrial fibrillation with rapid ventricular rate, currently rate-controlled. On IV amiodarone drip, start oral amiodarone today. Not a candidate for anticoagulation due to anemia. Qualifiers: Atrial fibrillation type: paroxysmal Qualified Code(s): I48.0 - Paroxysmal atrial fibrillation (3) Sepsis Current Visit: Yes Status: Acute Assessment and plan: Patient was noted to have an episode of fever spike, tachycardia with atrial fibrillation last night. This is likely related to bilateral acute lower extremity DVT and IVC filter placement. Sepsis to be considered. Urinalysis is not suggestive of infection. Chest x-ray and CT angiogram of chest shows bilateral pleural effusions and underlying pneumonia cannot be excluded. Preliminary blood cultures remain negative, we will de-escalate antibiotics to IV Rocephin. Supportive care. Qualifiers: Sepsis type: sepsis due to unspecified organism Qualified Code(s): A41.9 - Sepsis, unspecified organism (4) Deep vein thrombosis of lower extremity Current Visit: Yes Status: Acute Assessment and plan: Bilateral venous Doppler showed extensive DVTs in both legs from iliac up to posterior tibial and peroneal veins. Could not tolerate anticoagulation due to drop in hemoglobin. Vascular surgery was consulted and he underwent placement of IVC filter. Supportive care and pain control. Plan to be discharged back to hospice care when stable. 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 Noted to have significant mural thrombus , with 70% stenosis. No acute intervention recommended, possible endovascular intervention in the future after further vascular studies. 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 Continue home medications, supportive care and supplemental oxygen as needed. Qualifiers: Congestive heart failure type: systolic Congestive heart failure chronicity : chronic Qualified Code(s): I50.22 - Chronic systolic (congestive) heart failure (9) Coronary artery disease Current Visit: Yes Status: Chronic Qualifiers: Coronary Disease-Associated Artery/Lesion type: [place] artery [place] vs. transplanted heart: [place] heart Associated angina: without angina Qualified Code(s): I25.10 - Atherosclerotic heart disease of [place] coronary artery without angina pectoris (10) Anemia Current Visit: Yes Status: Acute Assessment and plan: Improved to 8.4 status post 1 unit PRBC transfusion. Qualifiers: Anemia type: unspecified type Qualified Code(s): D64.9 - Anemia, unspecified (11) Hypokalemia Current Visit: Yes Status: Acute Assessment and plan: supplement with oral potassium chloride; - Subjective Interval history: Reports difficulty urinating and oliguria along with some lower abdominal pain; no hematuria reported; no chest pain, palpitations, dyspnea, cough; does report chills but no documented fever; - Constitutional Vitals: Temp Pulse Resp BP Pulse Ox 97.5 F L 72 16 88/58 97 10/04/16 07:14 10/04/16 09:32 10/04/16 07:14 10/04/16 07:14 10/04/16 09:32 General appearance: Present: cachectic, A&O X 3, answers questions appropriately - Respiratory Respiratory exam: Present: CTAB (coarse breath sounds B/L). Absent: accessory muscle use, rales, rhonchi, wheezes - Cardiovascular Cardiovascular exam: Present: irregular rhythm, +S1, +S2. Absent: diastolic murmur, gallop, rubs, systolic murmur - GI/Abdominal GI/Abdominal exam: Present: normal bowel sounds, soft, no peritoneal signs. Absent: distended, tenderness - Extremities Exam Extremities exam: Present: full ROM (restricted in right knee due to pain), warm , radial pulses palpable and symmetrical. Absent: calf tenderness, cyanotic, pedal edema Additional comments: right popliteal fullness and tenderness+ Internal Medicine: Result - Labs CBC & Chem 7: 10/04/16 04:56 10/04/16 04:56 Labs: Short CBC 10/04/16 Range/Units 04:56 WBC 10.6 (4.3-11.1) K/mcL Hgb 8.4 L D (12.9-16.9) g/dL Hct 24.8 L (37.5-50.1) % Plt Count 75 L (140-400) K/mcL Neutrophils # 8.1 (1.6-8.9) K/mcL BMP 10/04/16 04:56 Sodium 137 Potassium 2.9 L D Chloride 103 Carbon Dioxide 23 BUN 41 H D Creatinine 0.79 Glucose 102 H Calcium 7.3 L - ABG Interpretation ABG results: PT/INR, D-dimer PT 14.5 Seconds (9.4-12.1) H 10/01/16 22:00 - VTE Reasons for not Prescribing Prophylaxis: Not indicated-Anticoagulated or INR therapeutic Consult Discharge Plan - Plan Referrals: Edith Dunaway DO [Primary Care Provider] -
[2016-10-04] MEDS: Sennosides/Docusate Sodium TABLET PO SCH ×2 (12:30→21:52)
--- NOTE | 2016-10-04 14:05 | Urology - Consult Note ---
Date of Encounter: 10/04/16 Time of Encounter: 14:03 - Assessment and Plan (1) Urinary retention Current Visit: Yes Status: Acute Assessment and plan: See procedure note. Able to place Nunez catheter. Okay to remove Nunez catheter one primary service deems appropriate. Could consider leaving catheter in for a longer period of time if it provides better quality of life for the patient. Catheter would be changed every 30 days if family and patient decides to leave it in place long-term. No urology follow-up required Urology CN:EDWARD Consult date: 10/04/16 Reason for consult Urology: Difficult Nunez History of present illness: 75-year-old male on hospice. Admitted for DVT and A. fib. Significant hesitancy and difficulty voiding today. Nursing staff unable to place Nunez catheter. Patient has had issues with hesitancy as his health has failed Past Med Surg Social Fam HX - Past Medical History Medical history: CHF, COPD Psychiatric history: no psych history - Past Surgical History Surgical History: non-contributory - Social History Smoking Status: Former smoker Smokeless Tobacco Status: No (Used to chew) Alcohol use: none Drug use: none Medications and Allergies Bumetanide [Bumex] 1 mg PO BID 10/01/16 [History] Clopidogrel [Plavix] 75 mg PO DAILY 10/01/16 [History] Lactobacillus Acidophilus [Acidophilus] 1 each PO BID 10/01/16 [History] Levofloxacin [Levaquin] 250 mg PO DAILY 10/01/16 [History] Levothyroxine [Synthroid] 50 mcg PO 0630 10/01/16 [History] Oxygen 2 l NS AD 10/01/16 [History] Potassium Chloride [Klor-Con 10] 10 meq PO BID 10/01/16 [History] Spironolactone [Aldactone] 25 mg PO DAILY 10/01/16 [History] methylPREDNISolone [Medrol] See Taper PO TAPER 10/02/16 [History] 3 Allergy/AdvReac Type Severity Reaction Status Date / Time No Known Allergies Allergy Verified 10/01/16 19:58 Review of Systems - Constitutional fatigue, no chills, no fever(s) - EENT Nose, mouth and throat: dizziness - Cardiovascular no chest pain - Respiratory dyspnea - Gastrointestinal abdominal pain, no nausea - Genitourinary difficulty urinating - Musculoskeletal back pain - Integumentary unusual bruising - Neurological no confusion - Psychiatric no suicidal ideation - Hematologic/Lymphatic easy bleeding - Allergic/Immunologic no throat swelling Exam Initial Vital Signs Temp Pulse Resp BP Pulse Ox 97.9 F 0 16 89/56 0 10/01/16 19:48 10/01/16 19:48 10/01/16 19:48 10/01/16 19:48 10/01/16 19:48 - General physical appearance Present: chronically ill - Eyes Present: PERRL - ENT Present: normal nares - Neck Present: no masses - Respiratory Present: other (Significant shortness of breath when transferring from chair to bed) - Cardiovascular Cardiovascular exam IM: RRR - Abdomen Abdomen: Present: soft, suprapubic tenderness Hernia: Present: none - Genitourinary Penis: Present: edema (Able to retract edematous foreskin) Urethral meatis: Present: orthotopic - Integumentary Absent: disoriented - Neurologic Absent: disoriented Urology Results - Labs 10/04/16 04:56 10/04/16 04:56 Abnormal lab results RBC 2.93 M/mcL (4.19-5.50) L 10/04/16 04:56 Hgb 8.4 g/dL (12.9-16.9) L D 10/04/16 04:56 Hct 24.8 % (37.5-50.1) L 10/04/16 04:56 RDW 16.9 % (11.5-14.5) H 10/04/16 04:56 Plt Count 75 K/mcL (140-400) L 10/04/16 04:56 Band Neutrophils % 16.0 % (0-4) H 10/04/16 04:56 Nucleated RBCs/100 WBC 0.1 /100 WBC (0) H 10/01/16 22:00 Platelet Estimate Decreased (Normal) L 10/04/16 04:56 Immature Plt Fraction 8.8 % (1.1-6.1) H 10/04/16 04:56 Hypochromasia Present (Not Present) A 10/04/16 04:56 PT 14.5 Seconds (9.4-12.1) H 10/01/16 22:00 APTT 44.3 Seconds (26.0-36.0) H 10/02/16 09:48 Potassium 2.9 mEq/L (3.5-4.5) L D 10/04/16 04:56 BUN 41 mg/dL (8-26) H D 10/04/16 04:56 BUN/Creatinine Ratio 52 (6-26) H 10/04/16 04:56 Glucose 102 mg/dL (70-99) H 10/04/16 04:56 POC Glucose 127 (58-89) H 10/03/16 20:15 Calcium 7.3 mg/dL (8.6-10.8) L 10/04/16 04:56 Total Bilirubin 2.1 mg/dL (0.2-1.2) H 10/02/16 03:00 B-Natriuretic Peptide 562 pg/mL (0-100) H 10/01/16 22:00 Serum Total Protein 4.3 g/dL (6.0-8.3) L 10/02/16 03:00 Albumin 2.3 g/dL (3.5-5.0) L 10/02/16 03:00 Globulin 2.0 g/dL (2.4-3.5) L 10/02/16 03:00 Diabetes panel 10/04/16 Range/Units 04:56 Sodium 137 (136-145) mEq/L Potassium 2.9 L D (3.5-4.5) mEq/L Chloride 103 (98-109) mEq/L Carbon Dioxide 23 (19-29) mEq/L BUN 41 H D (8-26) mg/dL Creatinine 0.79 (0.72-1.25) mg/dL Glucose 102 H (70-99) mg/dL Calcium 7.3 L (8.6-10.8) mg/dL Calcium panel 10/04/16 Range/Units 04:56 Calcium 7.3 L (8.6-10.8) mg/dL Pituitary panel 10/04/16 Range/Units 04:56 Sodium 137 (136-145) mEq/L Potassium 2.9 L D (3.5-4.5) mEq/L Chloride 103 (98-109) mEq/L Carbon Dioxide 23 (19-29) mEq/L BUN 41 H D (8-26) mg/dL Creatinine 0.79 (0.72-1.25) mg/dL Glucose 102 H (70-99) mg/dL Calcium 7.3 L (8.6-10.8) mg/dL Adrenal panel 10/04/16 Range/Units 04:56 Sodium 137 (136-145) mEq/L Potassium 2.9 L D (3.5-4.5) mEq/L Chloride 103 (98-109) mEq/L Carbon Dioxide 23 (19-29) mEq/L BUN 41 H D (8-26) mg/dL Creatinine 0.79 (0.72-1.25) mg/dL Glucose 102 H (70-99) mg/dL Calcium 7.3 L (8.6-10.8) mg/dL All other labs normal. Procedures:Urology - Catheter Insertion (Urinary) Prophylactic antibiotics given: No Bladder Scan/Ultrasound used before catheterization: Yes (300) Estimated amount of urin (mLs): 350 Preparation: Povidone-Iodine Type of catheter inserted: 2 way, coude tip Catheter Persian Size: 16 Topical anesthesia used: Yes (Lidocaine jelly) Results: successfully catheterized-immediate flow Urine Appearance: Clear Patient tolerated procedure: well Complications: none Consult Discharge Plan - Plan Referrals: Edith Dunaway DO [Primary Care Provider] -
[2016-10-05 05:18] LABS: BUN/Creatinine Ratio 46 (6-26); Blood Urea Nitrogen 33 mg/dL (8-26); Calcium 7.2 mg/dL (8.6-10.8); Carbon Dioxide 25 mEq/L (19-29); Chloride 104 mEq/L (98-109); Glucose 101 mg/dL (70-99); Magnesium 1.6 mg/dL (1.6-2.6); Osmolality,Calculated 289 (280-300); Sodium 136 mEq/L (136-145); eGFR For African Americans > 60 (> 60); eGFR For Non-African Americans > 60 (> 60)
[2016-10-05] MEDS: Bumetanide 1 MG TABLET PO SCH ×2 (07:37→20:49)
[2016-10-05] MEDS: Sennosides/Docusate Sodium TABLET PO SCH ×2 (07:37→20:49)
[2016-10-05] MEDS: *HR* Amiodarone 200 MG TABLET PO SCH (07:37)
[2016-10-05] MEDS: Lactobacillus 1 EACH CAP.SPRINK PO SCH ×2 (07:37→20:49)
[2016-10-05] MEDS: 0.9 % Sodium Chloride 1,000 ML IVC SCH (07:40)
--- NOTE | 2016-10-05 08:27 | Venous Imaging Report ---
LE Venous Duplex Patient Name:Prudencio Hyamn Order Number:[id number] Procedure Date:10/01/2016 Date:9Age:75 yrs Gender:Male Location:[facility] ED Room #: 30 Continuous Crusher Operator:Derek Ellis Referring MD:Morris Frost DO complex care nurse practitioner:None Reading MD:Sanket Martin MD Primary Indications:Right knee pain Secondary Indications: Risk Factors Yes/No Anticoagulants Yes Impressions: Bilateral extensive deep vein thrombosis iliac through tibial Recommendations: Critical findings reported to Dr. Olson in person by Derek Ellis. Findings Venous Duplex Results: Right: There is a thrombus seen in the right distal iliac. There is a thrombus seen in the right common femoral. There is a thrombus seen in the right superficial femoral. There is a thrombus seen in the right posterior tibial. There is a thrombus seen in the right peroneal. There is a thrombus seen in the right saphenofemoral junction. There is a thrombus seen in the right great saphenous. The right popliteal and right lesser saphenous veins were not assessed. Left: There is a thrombus seen in the left distal iliac. There is a thrombus seen in the left common femoral. There is a thrombus seen in the left superficial femoral. There is a thrombus seen in the left popliteal. There is a thrombus seen in the left posterior tibial. There is a thrombus seen in the left lesser saphenous. The left peroneal vein was not well visualized. Prior Study: No prior study available for comparison. Lower Extremity Venous Duplex Side Vein Compress Spontaneous Flow Augment Diameter (cm) Depth (cm) Right Lesser Saphenous Left Distal Iliac None no Absent no Left Common Femoral None no Absent no Left Superficial Femoral None no Absent no Left Popliteal None no Absent no Left Posterior Tibial None no Absent no Left Peroneal None no Absent no Left Saphenofemoral Junction Normal yes Phasic yes Left Great Saphenous Normal yes Phasic yes Left Lesser Saphenous None no Absent no Right Distal Iliac None no Absent no Right Common Femoral None no Absent no Right Superficial Femoral None no Absent no Right Popliteal Right Posterior Tibial None no Absent no Right Peroneal None no Absent no Right Saphenofemoral Junction None no Absent no Right Great Saphenous None no Absent no Updated by Sanket Martin MD on 10/03/2016 9:13:34 AM electronically signed on 10/03/2016 9:14:06 AM with status of Final
[2016-10-05] MEDS: *HR* OxyCODONE/APAP 5/325 TABLET PO PRN ×3 (12:10→23:41)
--- NOTE | 2016-10-05 15:41 | Discharge Summary ---
Date of Encounter: 10/05/16 Time of Encounter: 11:00 - Discharge Diagnosis (1) Urinary retention Priority: Primary Status: Acute (2) Atrial fibrillation Priority: Primary Status: Acute Qualifiers: Atrial fibrillation type: paroxysmal Qualified Code(s): I48.0 - Paroxysmal atrial fibrillation (3) Sepsis Priority: Primary Status: Ruled-out Qualifiers: Sepsis type: sepsis due to unspecified organism Qualified Code(s): A41.9 - Sepsis, unspecified organism (4) Deep vein thrombosis of lower extremity Priority: Primary Status: Acute Qualifiers: Affected thrombotic vein of extremity: iliac Chronicity: acute Laterality : bilateral Qualified Code(s): I82.423 - Acute embolism and thrombosis of iliac vein, bilateral (5) Popliteal artery aneurysm Priority: Primary Status: Chronic (6) Popliteal artery embolus Priority: Primary Status: Chronic (7) COPD (chronic obstructive pulmonary disease) Priority: Secondary Status: Chronic Qualifiers: COPD type: unspecified COPD Qualified Code(s): J44.9 - Chronic obstructive pulmonary disease, unspecified (8) CHF (congestive heart failure), NYHA class IV Priority: Secondary Status: Chronic Qualifiers: Congestive heart failure type: systolic Congestive heart failure chronicity : chronic Qualified Code(s): I50.22 - Chronic systolic (congestive) heart failure (9) Coronary artery disease Priority: Secondary Status: Chronic Qualifiers: Coronary Disease-Associated Artery/Lesion type: [place] artery [place] vs. transplanted heart: [place] heart Associated angina: without angina Qualified Code(s): I25.10 - Atherosclerotic heart disease of [place] coronary artery without angina pectoris (10) Anemia Priority: Primary Status: Acute Qualifiers: Anemia type: unspecified type Qualified Code(s): D64.9 - Anemia, unspecified (11) Hypokalemia Priority: Primary Status: Acute - Discharge Medications Prescriptions: Amiodarone [Cordarone] 200 mg PO DAILY #30 tab OxyCODONE/APAP 5/325 [Percocet 5/325 MG] 1 each PO Q6H PRN #20 tab PRN Reason: Pain Home Medications: Bumetanide [Bumex] 1 mg PO BID 10/01/16 [History] Clopidogrel [Plavix] 75 mg PO DAILY 10/01/16 [History] Lactobacillus Acidophilus [Acidophilus] 1 each PO BID 10/01/16 [History] Levothyroxine [Synthroid] 50 mcg PO 0630 10/01/16 [History] Oxygen 2 l NS AD 10/01/16 [History] Potassium Chloride [Klor-Con 10] 10 meq PO BID 10/01/16 [History] Spironolactone [Aldactone] 25 mg PO DAILY 10/01/16 [History] methylPREDNISolone [Medrol] See Taper PO TAPER 10/02/16 [History] Amiodarone [Cordarone] 200 mg PO DAILY #30 tab 10/05/16 [Rx] OxyCODONE/APAP 5/325 [Percocet 5/325 MG] 1 each PO Q6H PRN #20 tab 10/05/16 [Rx] Allergies/Adverse Reactions: 3 Allergy/AdvReac Type Severity Reaction Status Date / Time No Known Allergies Allergy Verified 10/01/16 19:58 Procedures/tests Complete & Pending: Procedures Performed prior 72 hours Category Date Time Status ECG 12 lead ECG [ECG] Routine Y 10/03/16 17:32 Completed ECG 12 lead ECG [ECG] Routine Y 10/04/16 Completed ECG 12 lead ECG [ECG] Routine Y 10/05/16 04:52 Completed Date of admission: 10/02/16 02:24 Primary care physician: Edith Dunaway DO Consults: 10/04/16 13:17 Consult to Urology [CONS] Routine Consulting Provider: Urology Gracie Reason for Consult: Urinary retention, difficulty initiating and maintaining urine stream Call Completed: Yes 10/05/16 10:49 Consult to Occupational Therapy [CONS] Routine Comment: Evaluate, develop and implement POC Reason for Consult: treament and recommendation Consult to Physical Therapy [CONS] Routine Comment: Evaluate, develop and implement POC Reason for Consult: treatment and recommendation Discharging clinician: Ewelina Briggs Anticipated date of discharge: 10/05/16 - Patient Status Disposition: Hospice - Home Condition: Fair Functional capacity at discharge: uses cane/walker Overall status at discharge: patient is progressing back to baseline - Discharge Instructions Follow Up With: Edith Dunaway DO [Primary Care Provider] - (PT IS HOSPICE, THEY MAKE THEIR OWN APPOINTMENTS) Additional Instructions: F/up with PCP and Home Hospice Patient would like to be discharged home with Nunez catheter for comfort; to be changed Qmonthly - Diet and Activity Activity: as per physical therapy, wear oxygen at night Diet: advance to your usual diet Hospital course: Mr. Hyman is a 75 year old male with h/o- severe CHF and cardiomyopathy, on home Hospice, was admitted with worsening pain and swelling in posterior right knee. He was noted to have bilateral extensive DVTs in lower extremities from iliac down to peroneal and posterior tibial veins. CTA chest showed no PE. He was started on anticoagulation with IV Heparin drip, which caused a drop in Hb, and received PRBC transfusion. Vascular surgery was consulted and patient underwent IVC filter placement as he was not a candidate for residential anticoagulation. Arterial studies also showed right popliteal aneurysm with mural thrombosis, with continued flow, causing swelling and pain in right popliteal fossa. Vascular surgery discussed his options and decided to monitor as an outpatient at this time. He developed new onset of atrial fibrillation with RVR while in the hospital and due to low BP, has been started on IV Amiodarone drip, now transitioned to PO Amiodarone with appropriate HR control. Patient declines to be placed at rehab facility and would like to go home with [facility]. He is unable to bear weight on right leg and ambulate, as he has been doing prior to this admission. PT/OT evaluation will be ordered, and patient is otherwise medically stable for discharge. - Time Spent with Patient Total time spent providing and/or coordinating discharge services: Greater than 30 minutes (40 min) - Constitutional Vitals: Temp Pulse Resp BP Pulse Ox 97.5 F L 87 16 89/71 94 10/05/16 15:01 10/05/16 15:01 10/05/16 15:01 10/05/16 15:01 10/05/16 15:01 General appearance: Present: cachectic, A&O X 3, answers questions appropriately - Respiratory Respiratory exam: Present: CTAB. Absent: accessory muscle use, rales, rhonchi, wheezes - Cardiovascular Cardiovascular exam: Present: irregular rhythm, +S1, +S2. Absent: diastolic murmur, gallop, rubs, systolic murmur - VTE Reasons for not Prescribing Prophylaxis: Not indicated-Anticoagulated or INR therapeutic
--- NOTE | 2016-10-05 15:44 | Physician Discharge Referral ---
Home Health/Hosp Referral Info Transfer to: Hospice Attending Provider: Ewelina Briggs Provider in Charge Post Discharge: Log Getter - Diagnosis (1) Urinary retention Priority: Primary Status: Acute (2) Atrial fibrillation Priority: Primary Status: Acute (3) Sepsis Priority: Primary Status: Ruled-out (4) Deep vein thrombosis of lower extremity Priority: Primary Status: Acute (5) Popliteal artery aneurysm Priority: Primary Status: Chronic (6) Popliteal artery embolus Priority: Primary Status: Chronic (7) COPD (chronic obstructive pulmonary disease) Priority: Secondary Status: Chronic (8) CHF (congestive heart failure), NYHA class IV Priority: Secondary Status: Chronic (9) Coronary artery disease Priority: Secondary Status: Chronic (10) Anemia Priority: Primary Status: Acute (11) Hypokalemia Priority: Primary Status: Acute - Respiratory Orders Oxygen / L per min (1-2L/min via NC at night) Smoking Cessation: Smoking cessation has been advised. For more information, call the [employer] Quit Line at 0-580-XZFJ-NOW. - Diet/Nutrition Diet/Nutrition Orders: Cardiac - Activity Activity Orders: Ambulate - Services Needed Following services are medically necessary services: Nursing, Physical Therapy, Occupational Therapy - Transfer Medications Prescriptions: Amiodarone [Cordarone] 200 mg PO DAILY #30 tab OxyCODONE/APAP 5/325 [Percocet 5/325 MG] 1 each PO Q6H PRN #20 tab PRN Reason: Pain Home Medications: Bumetanide [Bumex] 1 mg PO BID 10/01/16 [History] Clopidogrel [Plavix] 75 mg PO DAILY 10/01/16 [History] Lactobacillus Acidophilus [Acidophilus] 1 each PO BID 10/01/16 [History] Levothyroxine [Synthroid] 50 mcg PO 0630 10/01/16 [History] Oxygen 2 l NS AD 10/01/16 [History] Potassium Chloride [Klor-Con 10] 10 meq PO BID 10/01/16 [History] Spironolactone [Aldactone] 25 mg PO DAILY 10/01/16 [History] methylPREDNISolone [Medrol] See Taper PO TAPER 10/02/16 [History] Amiodarone [Cordarone] 200 mg PO DAILY #30 tab 10/05/16 [Rx] OxyCODONE/APAP 5/325 [Percocet 5/325 MG] 1 each PO Q6H PRN #20 tab 10/05/16 [Rx] Allergies/Adverse Reactions: 3 Allergy/AdvReac Type Severity Reaction Status Date / Time No Known Allergies Allergy Verified 10/01/16 19:58 Certification: Further, I certify that my clinical findings support that this patient is homebound (i.e. absences from home require considerable and taxing effort and are for medical reasons or cheondoism services or infrequently or short duration when for other reasons) because: Homebound Reason: Patient requires assistance of a person or device to safely leave home, Leaving home requires considerable and taxing effort due to condition, Severity of cardiac or pulmonary status limits activity tolerance Attestation: My signature below is to certify that this patient is under my care and that I, or nurse practitioner, or a physician's entry level marketing assistant working with me, has a face-to -face encounter with this patient.
--- NOTE | 2016-10-05 17:03 | Electrocardiograph Report ---
[place] [id number] Test Date: 2016-10-04 Pat Name: Prudencio Hyman Department: 110 Room: 08 Gender: M [employer]: MRR : [id number] Requested By: Ewelina Briggs Order Number: [id number] Reading MD: Emelia Bay Measurements Intervals [place] Rate: 108 P: [place]: 0 QRS: 16 QRSD: 160 T: 207 QT: 396 QTc: 459 Interpretive Statements ATRIAL FIBRILLATION WITH RAPID VENTRICULAR RESPONSE LEFT BUNDLE BRANCH BLOCK Electronically Signed On 10-05-2016 17:02:10 EDT by Emelia Bay
--- NOTE | 2016-10-05 17:04 | Electrocardiograph Report ---
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
--- NOTE | 2016-10-05 17:23 | Electrocardiograph Report ---
[place] [id number] Test Date: 2016-10-03 Pat Name: Prudencio Hyman Department: 110 Room: 2N08 Gender: M Inclusion Intern: ABUNDIO : 1940 Requested By: Ewelina Briggs Order Number: [id number] Reading MD: Emelia Bay Measurements Intervals [place] Rate: 78 P: [place]: 0 QRS: -32 QRSD: 118 T: 60 QT: 414 QTc: 448 Interpretive Statements ATRIAL FIBRILLATION LOW QRS VOLTAGE IN EXTREMITY LEADS INFERIOR MYOCARDIAL INFARCTION, PROBABLY OLD Electronically Signed On 10-05-2016 17:22:17 EDT by Emelia Bay
[2016-10-06] MEDS: 0.9 % Sodium Chloride 1,000 ML IVC SCH ×3 (00:33→07:36)
[2016-10-06] MEDS: *HR* OxyCODONE/APAP 5/325 TABLET PO PRN (06:47)
--- NOTE | 2016-10-06 06:55 | Vascular/Endovas Progress Note ---
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 A long discussion was held with the patient and his family. The patient is currently asymptomatic. He declines further evaluation at this time. He is planning to go go a fpc. He reports that he would like to see how he feels. He is willing to follow-up in clinic for further discussion. He was advised to seek medical attention if he develops any signs or symptoms of acute limb ischemia. (2) Deep vein thrombosis of lower extremity Status: Acute The patient has an acute right lower extremity DVT. He is currently on a heparin drip. His hemoglobin has decreased since starting the drip. 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 He also has poor cardiopulmonary reserve. An IVC filter is recommended to reduce his risk of pulmonary embolus. The risks, benefits and alternatives were discussed and all questions were answered. He expressed understanding and wishes to proceed. Qualifiers: Affected thrombotic vein of extremity: iliac Chronicity: acute Laterality : bilateral Qualified Code(s): I82.423 - Acute embolism and thrombosis of iliac vein, bilateral (3) Coronary artery disease Status: Chronic His currently on hospice due his congestive heart failure history. Qualifiers: Coronary Disease-Associated Artery/Lesion type: [place] artery [place] vs. transplanted heart: [place] heart Associated angina: without angina Qualified Code(s): I25.10 - Atherosclerotic heart disease of [place] coronary artery without angina pectoris - Subjective Interval history: The patient is alert and comfortable today. He denies any leg pain or tenderness. Vital Signs, Last 4 Hours Temp Pulse Resp BP Pulse Ox 10/06/16 05:01 81 10/06/16 04:22 97.8 F 86 16 99/78 97 - Physical Examination General: Present: Conversant, No Apparent Distress Neck: Absent: JVD Cardiac: Present: Reg Rate and Rhythm Lungs: Present: Normal Breath Sounds Neuro: Present: Alert and responsive, No focal deficits noted Vascular: Present: Normal capillary refill, Edema (trace right lower extremity edema), Other (right popliteal artery aneurysm is palapble). Absent: Cyanosis Abdomen: Present: Soft, Non-tender Skin: Present: No rashes noted on visualized skin - VTE Reasons for not Prescribing Prophylaxis: Not indicated-Anticoagulated or INR therapeutic Results 10/04/16 04:56 10/05/16 04:26 Consult Discharge Plan - Plan Instructions: Oxycodone/Acetaminophen (By mouth), Amiodarone (By mouth), Atrial Fibrillation (DC), Deep Venous Thrombosis (DC) Additional Instructions: F/up with PCP and Home Hospice Patient would like to be discharged home with Nunez catheter for comfort; to be changed Qmonthly Referrals: Edith Dunaway DO [Primary Care Provider] - (PT IS HOSPICE, THEY MAKE THEIR OWN APPOINTMENTS) Taco Andujar MD [Partnered Physician] - 11/06/16 9:30 am Prescriptions: Amiodarone [Cordarone] 200 mg PO DAILY #30 tab Lactulose 20 gm PO DAILY 30 Days Mirtazapine [Remeron] 15 mg PO DAILY #30 tablet OxyCODONE/APAP 5/325 [Percocet 5/325 MG] 1 each PO Q6H PRN #20 tab PRN Reason: Pain
[2016-10-06] MEDS: *HR* Amiodarone 200 MG TABLET PO SCH (09:07)
[2016-10-06] MEDS: Sennosides/Docusate Sodium TABLET PO SCH (09:07)
[2016-10-06] MEDS: Lactobacillus 1 EACH CAP.SPRINK PO SCH (09:07)
[2016-10-06] MEDS: Bumetanide 1 MG TABLET PO SCH (09:07)
[2016-10-06 11:24] VITALS: BP 105/85
[2016-10-06] MEDS ORDERED: Mirtazapine 15 MG TABLET PO SCH (14:53)
[2016-10-06] MEDS ORDERED: Lactulose Oral Soln 20 GM/30 ML UDC PO SCH (15:00)
--- NOTE | 2016-10-06 16:16 | Electrocardiograph Report ---
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
== END 2016-10-06 16:05 | disposition hospice, home (50) | DRG 253 ==
LOC: EMEROO 19:47 → 2NENU 19:47 → SUATTDRO 10-02 02:24 → 2NNU 10-02 23:57
PROVIDERS: ADMIT Internal Medicine Hematology & Oncology; ATTEND Internal Medicine